=== PATIENT | female | born 1965 | race Caucasian/White ===

== ENCOUNTER 2021-01-28 22:06 | Emergency (ER) | payer OTHER ==
[~2021-01-28] VITALS: Ht 165.1 cm; Wt 95.3 kg
[2021-01-28 22:28] VITALS: BP_SYST 139
[2021-01-28] MEDS ORDERED: IBUPROFEN 600 MG TABLET PO ONE (23:45)
[2021-01-28] MEDS ORDERED: HYDROcodone/ACETAMIN 5-325 MG TAB (NORCO/ VICODIN) PO ONE (23:45)
[2021-01-29] MEDS ORDERED: NAPR-688 PO
[2021-01-29] MEDS ORDERED: HYDR-3919 PO
[2021-01-29 00:27] VITALS: BP_SYST 132
== END 2021-01-29 00:27 | disposition home or self-care (01) ==
LOC: SED 22:06
DX: S93.491A Sprain of other ligament of right ankle, initial encounter (principal); Z79.899 Other long term (current) drug therapy; X50.0XXA Overexertion from strenuous movement or load, initial encounter; Y93.89 Activity, other specified; Y92.89 Other specified places as the place of occurrence of the external cause; Y99.8 Other external cause status
CPT/HCPCS: 99283